=== PATIENT | female | born 1955 | race Caucasian/White ===

== ENCOUNTER 2016-06-27 18:19 | Emergency (ER) | payer MEDICARE, BC ==
[~2016-06-27] VITALS: Ht 157.5 cm; Wt 65.9 kg
--- NOTE | 2016-06-27 18:24 | QN ---
Documentation Comment Patient was seen immediately upon arrival the patient arrived by ambulance. Patient's chief complaint is ankle sprain. The patient will be sent to triage for vital signs and will be seen by another provider. Medical screening exam was initiated. HENRIQUE WHITE MD Jun 27, 2016 18:24
[2016-06-27 18:38] VITALS: Ht 157.5 cm; Wt 65.9 kg
[2016-06-27] MEDS ORDERED: ACETAMINOPHEN 325 MG TAB PO ONE (20:00)
--- NOTE | 2016-06-27 20:21 | RADRPT ---
PROCEDURE: CT Brain without contrast. CLINICAL INDICATION: Right temporal head trauma and pain TECHNIQUE: A CT of the brain was performed on a [employer] 64-slice CT scanner utilizing axial imaging from the skull base through the vertex without IV contrast. Multiplanar reformatted images were made. Images were reviewed on a PACS workstation. The CTDIvol is 35.78 mGy and the DLP is 634 .23 mGycm. One of the following 3 dose reduction techniques were used: Automated exposure control; adjustment of the mA and/or kV according to patient size; or use of iterative reconstruction technique. COMPARISON: None available FINDINGS: There is no intracranial hemorrhage, mass effect, or midline shift. No extra-axial fluid collection is seen. The ventricles and sulci are normal in size and configuration. The density of the brain is normal, and the ledezma white matter differentiation appears well-preserved. The visualized scalp and calvarium are normal. The bilateral orbits are normal. Piercing is noted in the left supraorbital region and the bilateral pinna which limits diagnostic quality of this stud y and patient could not remove for study. The bilateral paranasal sinuses, mastoid air cells and middle ear cavities are clear. IMPRESSION: 1. No evidence of acute intracranial hemorrhage, infarcts or acute intracranial pathology. 2. 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 3. Normal noncontrast head CT. RPTAT: HDC .Melvina Singh MD, MD Date Time Electronically viewed and signed by .Melvina Singh MD, MD on 06/27/2016 20:21 .C/
--- NOTE | 2016-06-27 20:31 | RADRPT ---
PROCEDURE: XR Right Ankle. CLINICAL INDICATION: Lateral ankle injury. TECHNIQUE: AP, oblique and lateral views of the right ankle were performed. COMPARISON: No. FINDINGS: There is an avulsion fracture off the distal end of the fibula with adjacent soft tissue swelling. The other bony elements are normal. The ankle mortise is normal. IMPRESSION: There is an avulsion fracture of the distal right fibula. There is adjacent soft tissue swelling. RPTAT:AAJJ Physician Ming Date Time Electronically viewed and signed by Jose L Arzola Physician on 06/27/2016 20:30 /
[2016-06-27] MEDS ORDERED: TRAM50TA2 PO (20:42)
[2016-06-27] MEDS ORDERED: HYDROCODONE/APAP (10/325) TAB PO ONE (21:00)
--- NOTE | 2016-06-27 21:24 | ERD ---
ER Documentation Chief Complaint Date/Time DATE: 06/27/16 TIME: 21:20 Chief Complaint glf x 1 hour ago, c/o pain/swelling right ankle, pain right side of head HPI 60-year-old female status post ground-level fall comes to the emergency room with right lateral ankle pain as well as right-sided temporal head pain. She states that she had excellently tripped over the trash can, she complains of right lateral ankle pain that is localized, worse with movement, better at rest. She states that she also has a right temporal headache, although she did not express any loss of consciousness or vomiting, she is requesting head imaging at this time. No blurred vision, no weakness, denies paresthesias or neck pain. ROS All systems reviewed and are negative except as per history of present illness. Medications Home Meds Active Scripts Tramadol HCl (Tramadol HCl) 50 Mg Tablet, 50 MG PO Q4 Y for PAIN, #20 TAB Prov:CHARLENE GRANT PA-C 06/27/16 Allergies Allergies: Coded Allergies: Penicillins (Verified Allergy, Unknown, rash, 06/27/16) PMhx/Soc Medical and Surgical Hx: pt denies Medical Hx, pt denies Surgical Hx History of Surgery: No Anesthesia Reaction: No Hx Neurological Disorder: No Hx Respiratory Disorders: No Hx Cardiac Disorders: No Hx Psychiatric Problems: No Hx Miscellaneous Medical Probl: No Hx Alcohol Use: Yes Hx Substance Use: Yes (vapor) Hx Tobacco Use: No Smoking Status: Never smoker Physical Exam Vitals Vital Signs Date Time Temp Pulse Resp B/P Pulse Ox O2 Delivery O2 Flow Rate FiO2 06/27/16 18:38 98.3 77 20 118/63 98 Physical Exam General: Well-developed, well-nourished. The patient appears in no acute distress. HEENT: Head is normocephalic, atraumatic. Tender superficially over the right temporal scalp, no step-offs. No scleral icterus. Pupils are equal, round, and reactive. Oral mucous membranes are moist. No pharyngeal erythema. Neck: Supple. Nontender. Lungs: Clear to auscultation. Normal air movement. Heart: Regular rate and rhythm. S1 and S2 are normal. No murmurs, gallops, or rubs. Abdomen: Soft, nontender, nondistended. Bowel sounds are normoactive. Extremities: Right lateral malleolus is tender to palpation, there is overlying soft tissue, full range of motion with ankle flexion and dorsiflexion, no medial ankle tenderness, Mullen intact. No overlying laceration. Neuro: M/S: Alert and oriented Face: EOMI, CN II-XII grossly intact Motor: Normal strength throughout Sensation: Normal sensation throughout Speech: Normal Cerebel: Normal coordination Normal gait Normal finger to nose DTR: 2+ and symmetric upper/lower extremities Skin: Normal turgor. No rash or lesions. Results 24 hrs Current Medications Medications (Trade) Dose Ordered Sig/Margy Route PRN Reason Start Time Stop Time Status Last Admin Dose Admin Acetaminophen (Tylenol Tab) 650 mg ONCE ONCE PO 06/27/16 20:00 06/27/16 20:01 DC Acetaminophen/ Hydrocodone Bitart (Wayzata (10/325)) 1 tab ONCE ONCE PO 06/27/16 21:00 06/27/16 21:01 DC 06/27/16 21:03 PROCEDURE: XR Right Ankle. CLINICAL INDICATION: Lateral ankle injury. TECHNIQUE: AP, oblique and lateral views of the right ankle were performed. COMPARISON: No. FINDINGS: There is an avulsion fracture off the distal end of the fibula with adjacent soft tissue swelling. The other bony elements are normal. The ankle mortise is normal. IMPRESSION: There is an avulsion fracture of the distal right fibula. There is adjacent soft tissue swelling. RPTAT:AAJJ Physician Ming Date Time Electronically viewed and signed by Jose L Arzola Physician on 06/27/2016 20:30 JM/ PROCEDURE: CT Brain without contrast. CLINICAL INDICATION: Right temporal head trauma and pain TECHNIQUE: A CT of the brain was performed on a [employer] 64-slice CT scanner utilizing axial imaging from the skull base through the vertex without IV contrast. Multiplanar reformatted images were made. Images were reviewed on a PACS workstation. The CTDIvol is 35.78 mGy and the DLP is 634.23 mGycm. One of the following 3 dose reduction techniques were used: Automated exposure control; adjustment of the mA and/or kV according to patient size; or use of iterative reconstruction technique. COMPARISON: None available FINDINGS: There is no intracranial hemorrhage, mass effect, or midline shift. No extra- axial fluid collection is seen. The ventricles and sulci are normal in size and configuration. The density of the brain is normal, and the ledezma white matter differentiation appears well-preserved. The visualized scalp and calvarium are normal. The bilateral orbits are normal. Piercing is noted in the left supraorbital region and the bilateral pinna which limits diagnostic quality of this study and patient could not remove for study. The bilateral paranasal sinuses, mastoid air cells and middle ear cavities are clear. IMPRESSION: 1. No evidence of acute intracranial hemorrhage, infarcts or acute intracranial pathology. 2. 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 3. Normal noncontrast head CT. RPTAT: HDC .Melvina Singh MD, MD Date Time Electronically viewed and signed by .Melvina Singh MD, MD on 06/27/2016 20: 21 .C/ CC: CHARLENE GRANT PA-C Procedures/[facility] ED course: Patient refused Tylenol, she states that she takes Wayzata at home, she was therefore given 1 dose of Wayzata here in the ER. Patient's right ankle was placed in a splint, posterior short leg. She was given crutches to be toe-touch weightbearing. Splint Assessment: Neurovascularly intact post splint placement with good fit. MDM: 60-year-old female presents with traumatic right lateral ankle pain, patient's examination and radiographic findings is consistent with a lateral malleolus fracture, there is an avulsion type injury, and therefore she was splinted and was advised to follow-up with orthopedics. There is no evidence of an ankle dislocation, Achilles tendon rupture or neurovascular injury. CT scan of the head shows no acute intracranial process. She understands she is to follow-up with orthopedics next week for reevaluation. Departure Diagnosis: Primary Impression: Acute head injury without loss of consciousness Additional Impression: Ankle injury Condition: Good Patient Instructions: Fracture, Ankle (General), HEAD INJURY, No Wake-Up (Adult ) Referrals: JARRED NEAL MD Additional Instructions: COLD ROLLING COORDINATOR: YOU HAVE A MEDICAL CONDITION WHICH REQUIRES YOU TO SEE A SPECIALIST WITHIN THE NEXT 4-5 DAYS. PLEASE FOLLOW UP WITH YOUR PRIMARY PHYSICIAN FOR REFFERAL.IF YOU DO NOT HAVE A PRIMARY CARE PHYSICIAN AND/OR YOU CAN NOT AFFORD TO SEE A PHYSICIAN THE FOLLOWING RESOURCES HAVE BEEN SUPPLIED TO YOU. IT IS YOUR RESPONSIBILITY TO BE SEEN BY THE SPECIALIST CHARLENE GRANT PA-C Jun 27, 2016 21:24
[2016-06-27] MEDS ORDERED: HYDR-902 PO (22:19)
[2016-06-27 22:22] VITALS: BP 120/60; PULSE 70; RESP 18; TEMP 98.3
== END 2016-06-27 22:22 | disposition home or self-care (01) ==
LOC: FTE 18:19
DX: S09.90XA Unspecified injury of head, initial encounter (principal); R51 Headache; W01.198A Fall on same level from slipping, tripping and stumbling with subsequent striking against other object, initial encounter; Y92.9 Unspecified place or not applicable
CPT/HCPCS: 70450

== ENCOUNTER 2019-01-15 17:59 | Emergency (ER) | payer MEDICARE, BC ==
[~2019-01-15] VITALS: Ht 154.9 cm; Wt 63.0 kg
[~2019-01-15 17:59] MED LIST: CEPH-443 PO; IBUP-1542 PO
[2019-01-15 18:03] VITALS: Ht 154.9 cm; Wt 63.0 kg
[2019-01-15] MEDS ORDERED: SOD CHLORIDE 0.9% 1,000 ML IV STA (18:39)
[2019-01-15] MEDS ORDERED: KETOROLAC 15 MG INJ IV STA (18:39)
[2019-01-15 20:10] VITALS: BP 131/85; PULSE 105; RESP 20
[2019-01-15] MEDS ORDERED: CEPHALEXIN 500 MG CAP PO ONE (20:30)
== END 2019-01-15 20:33 | disposition home or self-care (01) ==
LOC: E/R 17:59
DX: G44.209 Tension-type headache, unspecified, not intractable (principal); N39.0 Urinary tract infection, site not specified; E03.9 Hypothyroidism, unspecified; F17.210 Nicotine dependence, cigarettes, uncomplicated; R40.2142 Coma scale, eyes open, spontaneous, at arrival to emergency department; R40.2362 Coma scale, best motor response, obeys commands, at arrival to emergency department; R40.2252 Coma scale, best verbal response, oriented, at arrival to emergency department; M54.2 Cervicalgia
CPT/HCPCS: 36415; 73562; 80053; 81001; 83690; 84484; 85025; 93005; 96374; 99285; J1885; J7030